=== PATIENT | male | born 1975 | race Caucasian/White ===

== ENCOUNTER 2018-03-10 16:07 | Emergency (ER) | payer BC ==
[~2018-03-10] VITALS: Ht 180.3 cm; Wt 99.8 kg
--- NOTE | ~2018-03-10 | EKG ---
[address] [place] [address] ELECTROCARDIOGRAM REPORT Name: MARVIN GUPTA [facility]: [facility] [id number] Admission: 03/10/18 Attend Phys: Discharge: Date of : 71 Report #: [id number] THIS REPORT FOR: //name// [facility] ED Test Date: 2018-03-10 Test Time: 16:47:40 Pat Name: MARVIN GUPTA Department: Room: Gender: [employer]: RUST : 1975 Requested By: Janette Melton Order Number: [id number] MD: Jean-Claude Barrios Measurements Intervals [place] Rate: 46 P: 19 AL: 149 QRS: 18 QRSD: 108 T: 20 QT: 470 QTc: 412 Interpretive Statements Sinus bradycardia Otherwise normal tracing No previous ECG available for comparison Electronically Signed On 03-10-2018 16:59:43 CDT by Jean-Claude Barrios [email or web address] <ELECTRONICALLY SIGNED> By: Jean-Claude Barrios MD, [facility] 03/10/18 1659 [id number] Jean-Claude Barrios MD, FACC /EPI
[2018-03-10] MEDS ORDERED: IBUPROFEN 800800 M1 PO (18:01)
[2018-03-10 18:11] VITALS: BP 116/73
== END 2018-03-10 18:12 | disposition home or self-care (01) ==
LOC: ER 16:07
DX: S30.1XXA Contusion of abdominal wall, initial encounter (principal); S20.219A Contusion of unspecified front wall of thorax, initial encounter; W22.8XXA Striking against or struck by other objects, initial encounter; Y93.39 Activity, other involving climbing, rappelling and jumping off; Y92.89 Other specified places as the place of occurrence of the external cause; Y99.8 Other external cause status